=== PATIENT | male | born 1995 | race Two or more races ===

== ENCOUNTER 2018-02-21 23:11 | Emergency (ER) | payer OTHER ==
[~2018-02-21] VITALS: Ht 175.3 cm; Wt 75.0 kg
[2018-02-22] MEDS ORDERED: IBUPROFEN 800MG TABLET PO ONE (00:45)
[2018-02-22 00:53] VITALS: BP 127/84
== END 2018-02-22 01:20 | disposition home or self-care (01) ==
LOC: ER 23:11
DX: K08.89 Other specified disorders of teeth and supporting structures (principal); R51 Headache; F17.200 Nicotine dependence, unspecified, uncomplicated
CPT/HCPCS: 99283